=== PATIENT | male | born 1995 | race Caucasian/White ===

== ENCOUNTER 2019-04-08 19:24 | Emergency (ER) | payer MEDICAID ==
[~2019-04-08] VITALS: Ht 182.9 cm; Wt 68.0 kg
[~2019-04-08 19:24] MED LIST: ATOM60CA; HAL1T; SERT100T
[2019-04-08 20:23] VITALS: BP 112/67
[2019-04-08] MEDS ORDERED: ACETAMINOPHEN 500 MG TAB PO ONE (21:45)
[2019-04-08] MEDS ORDERED: IBUPROFEN 800 MG TAB PO ONE (21:45)
== END 2019-04-08 22:27 | disposition home or self-care (01) ==
LOC: ER 19:24
DX: S23.41XA Sprain of ribs, initial encounter (principal); S20.211A Contusion of right front wall of thorax, initial encounter; W19.XXXA Unspecified fall, initial encounter; Y93.89 Activity, other specified; Y92.810 Car as the place of occurrence of the external cause; Y99.8 Other external cause status
CPT/HCPCS: 71101

== ENCOUNTER 2019-10-21 11:35 | Emergency (ER) | payer MEDICAID ==
[~2019-10-21] VITALS: Ht 182.9 cm; Wt 68.0 kg
[2019-10-21 11:54] VITALS: BP 120/71
[2019-10-21] MEDS ORDERED: KETOROLAC TROMETH 60MG/2ML VIAL IM ONE (12:15)
== END 2019-10-21 12:44 | disposition home or self-care (01) ==
LOC: ER 11:35
DX: S71.111D Laceration without foreign body, right thigh, subsequent encounter (principal); F17.210 Nicotine dependence, cigarettes, uncomplicated; X58.XXXD Exposure to other specified factors, subsequent encounter
CPT/HCPCS: 96372; 99283; J1885